=== PATIENT | male | born 1950 | race Caucasian/White ===

== ENCOUNTER 2021-11-18 09:38 | Outpatient (CLI) | payer MEDICARE, OTHER | END 2021-11-18 09:39 | disposition home or self-care (01) | LOC: CSHULT 09:38 | PROVIDERS: ATTEND Internal Medicine | DX: R01.1 Cardiac murmur, unspecified (principal); I51.7 Cardiomegaly; I34.0 Nonrheumatic mitral (valve) insufficiency; I34.8 Other nonrheumatic mitral valve disorders | CPT/HCPCS: 93306 ==

== ENCOUNTER 2022-12-22 14:51 | Emergency (ER) | payer MEDICARE, OTHER ==
[2022-12-22] MEDS ORDERED: Lidocaine 1% PF 5 ML VIAL ONE (15:36)
[2022-12-22] MEDS ORDERED: Boostrix 0.5 ML (Tdap) VIAL (>/=7 yrs of age) ONE (15:36)
[2022-12-22] MEDS ORDERED: Triple Antibiotic Oint 1 GM Packet ONE (16:29)
== END 2022-12-22 16:40 | disposition home or self-care (01) ==
LOC: CSHERS 14:51
DX: S61.011A Laceration without foreign body of right thumb without damage to nail, initial encounter (principal); Z23 Encounter for immunization; W26.8XXA Contact with other sharp object(s), not elsewhere classified, initial encounter
CPT/HCPCS: 12001; 90471; 90715

== ENCOUNTER 2023-10-31 10:20 | Emergency (ER) | payer MEDICARE, OTHER ==
[2023-10-31] MEDS ORDERED: Doxycycline 100 MG CAP PO SCH (11:15)
== END 2023-10-31 11:18 | disposition home or self-care (01) ==
LOC: CSHERS 10:20
DX: L03.116 Cellulitis of left lower limb (principal)
CPT/HCPCS: 99283

== ENCOUNTER 2024-05-04 08:16 | Emergency (ER) | payer MEDICARE, OTHER ==
[2024-05-04] MEDS ORDERED: Lidocaine Viscous Sol 2% 15 ml UD Cup ONE (09:29)
[2024-05-04] MEDS ORDERED: HYDROcodone/Acetaminophen 5/325 mg Tablet ONE (10:34)
== END 2024-05-04 11:05 | disposition short-term general hospital (02) ==
LOC: CSHERS 08:16
DX: R33.9 Retention of urine, unspecified (principal); L03.115 Cellulitis of right lower limb; Z55.6 Problems related to health literacy
CPT/HCPCS: 51703